=== PATIENT | female | born 1995 | race African-American/Black ===

== ENCOUNTER 2018-05-24 09:05 | Observation (INO) | payer MEDICAID ==
[~2018-05-24] VITALS: Ht 170.2 cm; Wt 88.9 kg
[2018-05-24] MEDS ORDERED: PNV1TABL76 PO (09:33)
[2018-05-24 11:20] LABS: CLARITY URINE CLOUDY (CLEAR); COLOR URINE YELLOW (YELLOW); KETONES URINE TRACE (NEGATIVE); LEUKOCYTE ESTERASE URINE 1+ (NEGATIVE); NITRITE URINE NEGATIVE (NEGATIVE); OCCULT BLOOD URINE 3+ (NEGATIVE); PH URINE 8.5 (4.5-8.0); PROTEIN URINE TRACE (NEGATIVE); SPECIFIC GRAVITY URINE 1.022 (1.005-1.030)
[2018-05-24] MEDS ORDERED: LACTATED RINGERS 1,000 ML IV SCH (11:45)
[2018-05-24] MEDS ORDERED: CEFAZOLIN 2,000 MG in DEXT 5% WATER 100 ML IV NR (13:00)
== END 2018-05-24 13:22 | disposition home or self-care (01) ==
LOC: 8 EST LDRP 09:05
PROVIDERS: ADMIT Obstetrics & Gynecology; ATTEND Obstetrics & Gynecology
DX: O46.93 Antepartum hemorrhage, unspecified, third trimester (principal); O26.893 Other specified pregnancy related conditions, third trimester; R10.30 Lower abdominal pain, unspecified; Z3A.31 31 weeks gestation of pregnancy
CPT/HCPCS: 76805; 81003; 96365; 99281; G0378; J0690; 96360; 96361; J7060

== ENCOUNTER 2018-07-17 13:31 | Observation (INO) | payer MEDICAID ==
[~2018-07-17] VITALS: Ht 170.2 cm; Wt 98.4 kg
[~2018-07-17 13:31] MED LIST: PNV1TABL76 PO
== END 2018-07-17 15:51 | disposition home or self-care (01) ==
LOC: 8 EST LDRP 13:31
PROVIDERS: ADMIT Obstetrics & Gynecology; ATTEND Obstetrics & Gynecology
DX: O76 Abnormality in fetal heart rate and rhythm complicating labor and delivery (principal); O26.893 Other specified pregnancy related conditions, third trimester; R10.9 Unspecified abdominal pain; Z3A.39 39 weeks gestation of pregnancy
CPT/HCPCS: 76815; 76818; G0378; 99281

== ENCOUNTER 2018-07-18 06:08 | Inpatient (IN) | payer MEDICAID ==
[~2018-07-18] VITALS: Ht 170.2 cm; Wt 98.4 kg
[2018-07-18] MEDS ORDERED: CARBOPROST TROMETHAMINE 250 MCG/ML AMPUL IM PRN (07:30)
[2018-07-18] MEDS ORDERED: LIDOCAINE HCL 1% 20ML VIAL (Pyxis) INJ INFIL SCH (07:30)
[2018-07-18] MEDS ORDERED: METHYLERGONOVINE MALEATE 0.2 MG/ML IM PRN (07:30)
[2018-07-18] MEDS ORDERED: BUTORPHANOL TARTRATE 2 MG/ML VIAL IV PRN (07:30)
[2018-07-18] MEDS ORDERED: NALOXONE HCL 0.4 MG/ML 1ML VIAL IM PRN (07:30)
[2018-07-18] MEDS: LACTATED RINGERS 1,000 ML IV SCH ×2 (07:48→08:22)
[2018-07-18 08:30] LABS: BASOPHILS % 0.1 % (0.0-2.0); EOSINOPHILS % 0.1 % (0.0-5.0); HEMATOCRIT. 33.5 % (36.0-48.0); HEMOGLOBIN. 11.1 g/dL (12.0-16.0); LYMPHOCYTES % 16.6 % (20.0-50.0); MEAN CORPUSCULAR HEMOGLOBIN 27.5 pg (28.0-32.0); MEAN PLATELET VOLUME 7.7 fl (7.4-10.4); MONOCYTES % 7.3 % (2.0-8.0); NEUTROPHILS % 75.9 % (40.0-76.0); PLATELET 311 x1000/uL (130-400); RED BLOOD CELL COUNT 4.03 mill/uL (4.2-5.4)
[2018-07-18] MEDS ORDERED: BUPIVACAINE HCL/NS/PF EPIDURAL 100 ML EP NR (08:30)
[2018-07-18 08:41] LABS: PARTIAL THROMBOPLASTIN TIME 29.1 sec (23.4-31.0); PROTHROMBIN TIME 9.8 sec (9.1-11.1)
[2018-07-18 08:42] LABS: CLARITY URINE TURBID (CLEAR); COLOR URINE DARK YELLOW (YELLOW); KETONES URINE NEGATIVE (NEGATIVE); LEUKOCYTE ESTERASE URINE 2+ (NEGATIVE); NITRITE URINE NEGATIVE (NEGATIVE); OCCULT BLOOD URINE 3+ (NEGATIVE); PROTEIN URINE 2+ (NEGATIVE); SPECIFIC GRAVITY URINE 1.015 (1.005-1.030)
[2018-07-18] MEDS ORDERED: FENTANYL CITRATE/PF 50MCG/ML 5ML VIAL ONE (08:59)
[2018-07-18] MEDS ORDERED: BUPIVACAINE HCL/PF 0.25% (2.5MG/ML) 10ML ONE (08:59)
[2018-07-18] MEDS ORDERED: ROPIVACAINE HCL/PF EPIDURAL 200 ML EPI ONE ×2 (09:00→09:45)
[2018-07-18 09:19] LABS: *BARBITURATES SCREEN URINE NEGATIVE (NEGATIVE)
[2018-07-18 09:20] LABS: *AMPHETAMINES SCREEN URINE NEGATIVE (NEGATIVE); *BENZODIAZEPINES SCREEN URINE NEGATIVE (NEGATIVE); *COCAINE SCREEN URINE NEGATIVE (NEGATIVE); METHADONE URINE SCREEN NEGATIVE (NEGATIVE); OPIATES URINE SCREEN NEGATIVE (NEGATIVE); PHENCYCLIDINE URINE SCREEN NEGATIVE (NEGATIVE)
[2018-07-18 09:21] LABS: CANNABINOID URINE SCREEN NEGATIVE (NEGATIVE)
[2018-07-18] MEDS: DEXT 5%/LR + PITOCIN 20UNITS/L 1,000 ML IV SCH ×2 (09:51→21:59)
[2018-07-18 16:29] LABS: HEPATITIS B SURFACE ANTIGEN NEGATIVE
[2018-07-18] MEDS ORDERED: CEFAZOLIN 2,000 MG in DEXT 5% WATER 100 ML IV NR (20:00)
[2018-07-18] MEDS ORDERED: DEXT 5%/LR + PITOCIN 20UNITS/L 1,000 ML IV SCH (20:54)
[2018-07-18] MEDS ORDERED: RHO(D) IMMUNE GLOBULIN 300 MCG/SYR IM PRN (21:00)
[2018-07-18] MEDS ORDERED: BENZOCAINE/LANOLIN/ALOE VERA SPRAY TOP PRN (21:00)
[2018-07-18] MEDS ORDERED: IBUPROFEN 400MG TABLET PO PRN (21:00)
[2018-07-18] MEDS: ACETAMINOPHEN WITH CODEINE 300/30MG TABLET PO PRN (22:01)
[2018-07-18 22:30] VITALS: BP 139/83
[2018-07-18 22:50] VITALS: BP 139/83
[2018-07-18 23:00] VITALS: BP 138/80
[2018-07-18 23:30] VITALS: BP 131/65
[2018-07-18] MEDS: IBUPROFEN 800MG TABLET PO PRN (23:33)
[2018-07-19] VITALS: BP 121/67
[2018-07-19] MEDS: ACETAMINOPHEN WITH CODEINE 300/30MG TABLET PO PRN (01:50)
[2018-07-19] MEDS: CEFAZOLIN 1000MG PREMIX 50 ML IV SCH ×2 (01:56→08:48)
[2018-07-19 04:00] VITALS: BP 115/65
[2018-07-19 07:13] LABS: HEMATOCRIT. 28.7 % (36.0-48.0); HEMOGLOBIN. 9.4 g/dL (12.0-16.0); LYMPHOCYTES % 8.4 % (20.0-50.0); MEAN CORPUSCULAR HEMOGLOBIN 27.2 pg (28.0-32.0); MEAN CORPUSCULAR VOLUME 83.2 fL (81.0-99.0); MEAN PLATELET VOLUME 7.7 fl (7.4-10.4); MONOCYTES % 8.9 % (2.0-8.0); NEUTROPHILS % 82.7 % (40.0-76.0); PLATELET 284 x1000/uL (130-400); RED BLOOD CELL COUNT 3.45 mill/uL (4.2-5.4); RED CELL DISTRIBUTION WIDTH 16.2 % (11.6-14.6)
[2018-07-19 07:36] VITALS: BP 106/63
[2018-07-19] MEDS: IBUPROFEN 800MG TABLET PO PRN (08:50)
[2018-07-19] MEDS: CEPHALEXIN 250MG CAPSULE PO SCH (15:54)
[2018-07-19 15:56] VITALS: BP 107/73
[2018-07-19 22:00] VITALS: BP 112/71
[2018-07-20] MEDS: CEPHALEXIN 250MG CAPSULE PO SCH ×2 (00:02→08:16)
[2018-07-20 05:50] VITALS: BP 109/68
[2018-07-20 07:54] VITALS: BP 101/60
== END 2018-07-20 18:00 | disposition home or self-care (01) | DRG 560 ==
LOC: 8 EST LDRP 06:08 → INTOOBSV 06:08 → OBSVTOIN 06:08 → 8 EST LDRP 08:37 → UNDODISOB 13:45 → 8EST 22:30
PROVIDERS: ADMIT Obstetrics & Gynecology; ATTEND Obstetrics & Gynecology
PROC: 10D07Z6 Extraction of Products of Conception, Vacuum, Via Natural or Artificial Opening (ICD-10-PCS; principal; 2018-07-18)
PROC: 00HU33Z Insertion of Infusion Device into Spinal Canal, Percutaneous Approach (ICD-10-PCS; 2018-07-18)
PROC: 3E0R3BZ Introduction of Anesthetic Agent into Spinal Canal, Percutaneous Approach (ICD-10-PCS; 2018-07-18)
PROC: 0HQ9XZZ Repair Perineum Skin, External Approach (ICD-10-PCS; 2018-07-18)
DX: O77.0 Labor and delivery complicated by meconium in amniotic fluid (principal); O70.0 First degree perineal laceration during delivery; Z37.0 Single live birth; Z3A.39 39 weeks gestation of pregnancy; Z82.49 Family history of ischemic heart disease and other diseases of the circulatory system; Z86.19 Personal history of other infectious and parasitic diseases
CPT/HCPCS: 36415; 80305; 86592; 86703; 86762; 86850; 86900; 87070; 87340; 99281; J0595; J0690; J2590; J3010; J3490; J7060; J7120; A4315

== ENCOUNTER 2021-01-03 01:42 | Inpatient (IN) | payer MEDICAID, OTHER ==
[~2021-01-03] VITALS: Ht 170.2 cm; Wt 92.5 kg
[2021-01-03] MEDS ORDERED: DEXT 5%/LR + PITOCIN 20UNITS/L 1,000 ML IV SCH (03:00)
[2021-01-03] MEDS ORDERED: NALOXONE HCL 0.4 MG/ML 1ML VIAL IM PRN (03:00)
[2021-01-03] MEDS ORDERED: METHYLERGONOVINE MALEATE 0.2 MG/ML IM PRN (03:00)
[2021-01-03] MEDS: LACTATED RINGERS 1,000 ML IV SCH ×2 (03:19→05:42)
[2021-01-03] MEDS ORDERED: LIDOCAINE HCL 1% 20ML VIAL (Pyxis) INJ INFIL NR (03:30)
[2021-01-03 03:56] LABS: CLARITY URINE CLOUDY (CLEAR); COLOR URINE YELLOW (YELLOW); KETONES URINE TRACE (NEGATIVE); LEUKOCYTE ESTERASE URINE 2+ (NEGATIVE); NITRITE URINE NEGATIVE (NEGATIVE); OCCULT BLOOD URINE NEGATIVE (NEGATIVE); PROTEIN URINE TRACE (NEGATIVE); SPECIFIC GRAVITY URINE 1.031 (1.005-1.030)
[2021-01-03 04:08] LABS: BASOPHILS % 0.2 % (0.0-2.0); EOSINOPHILS % 0.5 % (0.0-5.0); HEMATOCRIT. 32.2 % (36.0-48.0); HEMOGLOBIN. 10.8 g/dL (12.0-16.0); LYMPHOCYTES % 22.6 % (20.0-50.0); MEAN CORPUSCULAR VOLUME 83.2 fL (81.0-99.0); MEAN PLATELET VOLUME 8.2 fl (7.4-10.4); MONOCYTES % 8.9 % (2.0-8.0); NEUTROPHILS % 67.8 % (40.0-76.0); PLATELET 297 x1000/uL (130-400); RED BLOOD CELL COUNT 3.87 mill/uL (4.2-5.4); RED CELL DISTRIBUTION WIDTH 13.7 % (11.6-14.6)
[2021-01-03 04:10] LABS: METHADONE URINE SCREEN NEGATIVE (NEGATIVE); OPIATES URINE SCREEN NEGATIVE (NEGATIVE); PHENCYCLIDINE URINE SCREEN NEGATIVE (NEGATIVE)
[2021-01-03 04:11] LABS: *AMPHETAMINES SCREEN URINE NEGATIVE (NEGATIVE); *BARBITURATES SCREEN URINE NEGATIVE (NEGATIVE); *BENZODIAZEPINES SCREEN URINE NEGATIVE (NEGATIVE); *COCAINE SCREEN URINE NEGATIVE (NEGATIVE); CANNABINOID URINE SCREEN NEGATIVE (NEGATIVE)
[2021-01-03 04:26] LABS: PARTIAL THROMBOPLASTIN TIME 29.9 sec (23.4-31.0); PROTHROMBIN TIME 10.3 sec (9.6-11.0)
[2021-01-03 05:11] LABS: HEPATITIS B SURFACE ANTIGEN NEGATIVE
[2021-01-03] MEDS: MISOPROSTOL 100MCG TABLET VG PRN (05:26)
[2021-01-03] MEDS ORDERED: ROPIVACAINE HCL/PF EPIDURAL 200 ML EP SCH (07:30)
[2021-01-03] MEDS ORDERED: MISOPROSTOL 100MCG TABLET ONE (14:23)
[2021-01-03] MEDS: DEXT 5%/LR + PITOCIN 20UNITS/L 1,000 ML IV SCH (19:05)
[2021-01-04] MEDS ORDERED: FENTANYL CITRATE/PF 50MCG/ML 2ML VIAL ONE (01:12)
[2021-01-04] MEDS: LACTATED RINGERS 1,000 ML IV SCH ×2 (01:48→03:37)
[2021-01-04] MEDS ORDERED: TERBUTALINE SULFATE 1MG/ML VIAL ONE (03:59)
[2021-01-04] MEDS ORDERED: TERBUTALINE SULFATE 1MG/ML VIAL SUBCUT NR (04:00)
[2021-01-04] MEDS ORDERED: OXYCODONE HCL/ACETAMINOPHEN 5/325MG TABLET PO PRN (05:30)
[2021-01-04] MEDS ORDERED: RHO(D) IMMUNE GLOBULIN 300 MCG/SYR IM PRN (05:30)
[2021-01-04] MEDS ORDERED: IBUPROFEN 400MG TABLET PO PRN (05:30)
[2021-01-04] MEDS ORDERED: BENZOCAINE/LANOLIN/ALOE VERA SPRAY TOP PRN (05:30)
[2021-01-04] MEDS: IBUPROFEN 800MG TABLET PO PRN (05:56)
[2021-01-04] MEDS ORDERED: DEXT 5%/LR + PITOCIN 20UNITS/L 1,000 ML IV SCH (06:00)
[2021-01-04] MEDS: DEXT 5%/LR + PITOCIN 20UNITS/L 1,000 ML IV SCH (06:51)
[2021-01-04 07:30] VITALS: BP 140/75
[2021-01-04] MEDS ORDERED: PRENATAL VIT/FE FUMARATE/FA TABLET PO SCH (09:00)
[2021-01-04] MEDS ORDERED: EPHEDRINE SULFATE 50MG/ML VIAL ONE (10:05)
[2021-01-04] MEDS ORDERED: LIDOCAINE HCL 2%/EPINEPHRINE 1:100,000 20 ML VIAL INFIL ONE (10:05)
[2021-01-04] MEDS: MISOPROSTOL 100MCG TABLET VG PRN (14:31)
[2021-01-04 16:00] VITALS: BP 115/53
[2021-01-04 20:00] VITALS: BP 134/85
[2021-01-05] MEDS: IBUPROFEN 800MG TABLET PO PRN ×2 (02:31→10:44)
[2021-01-05 04:00] VITALS: BP 132/62
[2021-01-05 06:05] LABS: BASOPHILS % 0.1 % (0.0-2.0); EOSINOPHILS % 0.4 % (0.0-5.0); HEMOGLOBIN. 10.5 g/dL (12.0-16.0); LYMPHOCYTES % 24.6 % (20.0-50.0); MEAN CORPUSCULAR HEMOGLOBIN 27.4 pg (28.0-32.0); MEAN CORPUSCULAR VOLUME 83.5 fL (81.0-99.0); MEAN PLATELET VOLUME 7.8 fl (7.4-10.4); MONOCYTES % 7.2 % (2.0-8.0); NEUTROPHILS % 67.7 % (40.0-76.0); PLATELET 281 x1000/uL (130-400); RED BLOOD CELL COUNT 3.83 mill/uL (4.2-5.4)
[2021-01-05] MEDS ORDERED: FERROUS SULFATE 325MG TABLET PO SCH (07:30)
[2021-01-05 08:30] VITALS: BP 116/65
[2021-01-05 17:13] VITALS: BP 134/81
[2021-01-05 20:00] VITALS: BP 133/81
[2021-01-06 04:00] VITALS: BP 106/59
[2021-01-06] MEDS ORDERED: IBUP-2030 PO (07:08)
[2021-01-06 08:00] VITALS: BP 108/72
== END 2021-01-06 11:20 | disposition home or self-care (01) | DRG 560 ==
LOC: OBSVTOIN 01:42 → 8 EST LDRP 01:42 → 8EST 01-04 10:55
PROVIDERS: ADMIT Obstetrics & Gynecology; ATTEND Obstetrics & Gynecology
PROC: 10D07Z6 Extraction of Products of Conception, Vacuum, Via Natural or Artificial Opening (ICD-10-PCS; principal; 2021-01-04)
PROC: 0KQM0ZZ Repair Perineum Muscle, Open Approach (ICD-10-PCS; 2021-01-04)
PROC: 3E033VJ Introduction of Other Hormone into Peripheral Vein, Percutaneous Approach (ICD-10-PCS; 2021-01-04)
DX: O48.0 Post-term pregnancy (principal); Z37.0 Single live birth; O70.1 Second degree perineal laceration during delivery; O99.02 Anemia complicating childbirth; Z3A.40 40 weeks gestation of pregnancy; Z82.49 Family history of ischemic heart disease and other diseases of the circulatory system
CPT/HCPCS: 36415; 76805; 76818; 80305; 81003; 85025; 86592; 86703; 86762; 86850; 86900; 87340; 87426; 99281; J2590; J2795; J3010; J3105; J3490

== ENCOUNTER 2025-03-07 10:27 | Emergency (ER) | payer MEDICAID, OTHER ==
[~2025-03-07] VITALS: Ht 170.2 cm; Wt 80.0 kg
[~2025-03-07 10:27] MED LIST changes: +IBUP-2030 PO; -PNV1TABL76 PO
[2025-03-07 10:32] VITALS: O2SAT 98
[2025-03-07] MEDS ORDERED: CAPS42.514 TP (11:26)
[2025-03-07] MEDS: ACETAMINOPHEN 325MG TABLET PO ONE (11:41)
[2025-03-07 11:44] VITALS: BP 120/77; PULSE 89; RESP 15; TEMP 37.2; O2SAT 98
== END 2025-03-07 11:45 | disposition home or self-care (01) ==
LOC: ER 10:27
DX: M25.531 Pain in right wrist (principal)
CPT/HCPCS: 73100; 99283